=== PATIENT | male | born 1950 | race Caucasian/White ===

== ENCOUNTER 2022-03-31 19:36 | Emergency (ER) | payer MEDICARE, OTHER ==
[~2022-03-31] VITALS: Ht 175.3 cm; Wt 76.2 kg
--- NOTE | 2022-03-31 20:07 | NUR ---
[id number] FROM APARTMENT C/O ETOH, FOUND OUTSIDE BY FRIEND. FRIEND DENIES ANY TRAUMA OR FALLS. PT BREATHING EVEN AND UNLABORED CHANGED INTO GOWN AND PLACED ON MONITOR AND V/S WNL. MD WAS AT BEDSIDE FOR ASSESSMENT.
--- NOTE | 2022-03-31 20:31 | NUR ---
LAB AT BEDSIDE
--- NOTE | 2022-03-31 20:48 | NUR ---
URINE COLLECTED SENT TO LAB
[2022-03-31 20:55] LABS: BASOPHILS % (AUTO) 0.4 % (0.0-2.0); EOSINOPHILS % (AUTO) 2.5 % (0.0-6.0); HEMATOCRIT 38 % (39-51); HEMOGLOBIN 12.9 g/dL (13.5-17.5); LYMPHOCYTES # (AUTO) 0.6 K/uL (0.8-4.8); LYMPHOCYTES % (AUTO) 12.9 % (20.0-44.0); MEAN CORPUSCULAR HGB CONC 34 g/dl (31.0-36.0); MEAN CORPUSCULAR VOLUME 88 fL (80-96); MONOCYTES # (AUTO) 0.3 K/uL (0.1-1.30); MONOCYTES % (AUTO) 6.2 % (2.0-12.0); NEUTROPHILS # (AUTO) 3.4 K/uL (1.8-8.9); PLATELET COUNT (AUTO) 148 K/uL (150-450); RED BLOOD CELL COUNT(AUTO) 4.35 MIL/uL (4.5-6.0); WHITE BLOOD COUNT (AUTO) 4.3 K/uL (4.3-11.0)
[2022-03-31 21:07] LABS: CALCIUM, SERUM 8.9 mg/dL (8.5-10.1); CARBON DIOXIDE 26 mmol/L (21-32); CHLORIDE 105 mmol/L (98-107); CREATININE 1.1 mg/dL (0.6-1.3); GLUCOSE 123 mg/dL (74-106); POTASSIUM 3.7 mmol/L (3.5-5.1); SODIUM SERUM 141 mmol/L (136-145); UREA NITROGEN, BLOOD 24 mg/dL (7-18)
[2022-03-31 21:15] LABS: ALANINE AMINOTRANSFERASE 38 U/L (12-78); ALBUMIN 3.7 g/dL (3.4-5.0); ALCOHOL, BLOOD 220 mg/dL (0-0); ALKALINE PHOSPHATASE 73 U/L (46-116); ASPARTATE AMINOTRANSFERASE 29 U/L (15-37); BILIRUBIN,DIRECT 0.2 mg/dL (0.0-0.2); BILIRUBIN,TOTAL 0.7 mg/dL (0.2-1.0)
[2022-03-31 21:20] LABS: THYROID STIMULATING HORMONE 1.254 uIU/mL (0.358-3.74)
[2022-03-31 21:21] LABS: ACETAMINOPHEN < 2 ug/ml (10-30)
--- NOTE | 2022-03-31 21:25 | NUR ---
DR MCKEON ON THE PHONE WITH THE FAMILY
[2022-03-31 21:30] LABS: BILIRUBIN,URINE NEGATIVE (NEGATIVE); COLOR,URINE YELLOW (YELLOW); LEUKOCYTE ESTERASE ,URINE NEGATIVE (NEGATIVE); NITRITE, URINE NEGATIVE (NEGATIVE); PROTEIN,URINE NEGATIVE (NEGATIVE); UGLUCOSE NEGATIVE (NEGATIVE); UROBILINOGEN,URINE 0.2 EU/dL (0.2)
--- NOTE | 2022-03-31 21:32 | NUR ---
SENT CT IMAGES TO DR KIMBLE
--- NOTE | 2022-03-31 21:33 | NUR ---
DR KIMBLE ON THE PHONE WITH DR KIMBLE, NEUROSURGEON
[2022-03-31] MEDS ORDERED: LEVETIRACETAM (500MG) 500 MG/5 ML VIAL IV ONE (21:46)
--- NOTE | 2022-03-31 21:55 | NUR ---
FAXED CLINICALS AND FACE SHEET TO [facility] AT [facility]
--- NOTE | 2022-03-31 21:55 | NUR ---
COVID TEST DONE AND SENT TO LAB
[2022-03-31] MEDS ORDERED: LEVETIRACETAM (500MG) 500 MG in IV NS 0.9% 100 ML IV SCH (22:00)
--- NOTE | 2022-04-01 01:03 | NUR ---
PATIENT ACCEPTED AT [facility] [id number] # report [phone] Will help to set up ALS transport
--- NOTE | 2022-04-01 01:22 | NUR ---
[facility] ETA: [id number]
--- NOTE | 2022-04-01 01:47 | NUR ---
Patient and family do not wish to proceed with medical care recommended by Dr. Edmondson. Patient and daughter given information related to possible complications, up to and including , which could occur as a result of leaving the hospital at this time. Patient and daughter verbalize understanding of risks involved due to leaving against medical advice. Patient has signed AMA form. Iv lines removed and 2x2 gauze applied and bleeding controlled without issue. Assisted by nursing staff via wheelchair to car and driven home by daughter.
[2022-04-01 01:56] VITALS: BP 100/54
== END 2022-04-01 01:57 | disposition left against medical advice (07) ==
LOC: ER 19:38
DX: G93.89 Other specified disorders of brain (principal); I61.9 Nontraumatic intracerebral hemorrhage, unspecified; F10.129 Alcohol abuse with intoxication, unspecified; R41.82 Altered mental status, unspecified; Z20.822 Contact with and (suspected) exposure to COVID-19; Z53.29 Procedure and treatment not carried out because of patient's decision for other reasons
CPT/HCPCS: 99291; 96365; 71045; 70450; 85025; 80048; 80076; 81003; 36415; 84443; 84484; 85730; 87426; 80143; 80320; 80307; J7030 ×2; J1953 ×2; C9803; G0480